=== PATIENT | male | born 1955 | race Caucasian/White ===

== ENCOUNTER 2017-11-14 10:43 | Inpatient (IN) | payer OTHER ==
[~2017-11-14] VITALS: Ht 167.6 cm; Wt 75.7 kg
[2017-11-14] MEDS ORDERED: IBUPROFEN 600 MG TABLET PO PRN (12:30)
[2017-11-14] MEDS ORDERED: LORAZEPAM 2 MG/1 ML VIAL IM PRN (12:30)
[2017-11-14] MEDS ORDERED: MAG HYDROX/AL HYDROX/SIMETH 30 ML LIQUID UDC PO PRN (12:30)
[2017-11-14] MEDS ORDERED: MAGNESIUM HYDROXIDE 30 ML LIQUID UDC PO PRN (12:30)
[2017-11-14] MEDS ORDERED: diphenhydrAMINE 50 MG CAPSULE PO PRN (12:30)
[2017-11-14] MEDS ORDERED: ONDANSETRON 4 MG/2 ML VIAL IM PRN (12:30)
[2017-11-14] MEDS ORDERED: THIAMINE HCL 200 MG/2 ML VIAL IM ONE (12:30)
[2017-11-14] MEDS ORDERED: CLONIDINE HCL 0.1 MG TABLET PO PRN (12:30)
[2017-11-14] MEDS ORDERED: LOPERAMIDE HCL 2 MG CAPSULE PO PRN ×2 (12:30)
[2017-11-14] MEDS ORDERED: ONDANSETRON ODT 4 MG TAB.RAPDIS SL PRN (12:30)
[2017-11-14] MEDS ORDERED: DICYCLOMINE HCL 20 MG TABLET PO PRN (12:30)
[2017-11-14] MEDS ORDERED: MIRALAX 17 GM POWD.PACK PO PRN (12:30)
[2017-11-14] MEDS ORDERED: ACETAMINOPHEN 325 MG TABLET PO PRN (12:30)
[2017-11-14] MEDS ORDERED: LORAZEPAM 1 MG TABLET PO PRN (12:30)
--- NOTE | 2017-11-14 13:15 | NUR ---
Preadmission Note: Pt is 62M, seen in intake office accompanied by hazardous materials handler. Pt is AOx4 and able to answer assessment questions. Pt noted with increasing anxiety during assessment questions. Pt reports drinking 1-1.5 bottles of white wine. Vitals: BP:155/77, HR: 88, RR 18, T 97.8, Spo2 98%. Educated pt with unit policies and procedures. Pt verbalized understanding. Will continue admission on unit.
[2017-11-14 13:27] LABS: BASOPHILS % (AUTO) 0.4 % (0.0-2.0); EOSINOPHILS # (AUTO) 0.1 K/uL (0.0-0.7); EOSINOPHILS % (AUTO) 1.2 % (0.0-7.0); HEMATOCRIT 39.2 % (36.7-47.1); HEMOGLOBIN 13.8 g/dL (12.5-16.3); LYMPHOCYTES # (AUTO) 1.8 K/uL (20.0-40.0); LYMPHOCYTES % (AUTO) 24.9 % (20.5-51.5); MEAN CORPUSCULAR HEMOGLOBIN 34.1 uug (23.8-33.4); MEAN CORPUSCULAR HGB CONC 35 g/dL (32.5-36.3); MEAN CORPUSCULAR VOLUME 97.1 fL (73.0-96.2); MONOCYTES # (AUTO) 0.8 K/uL (2.0-10.0); MONOCYTES % (AUTO) 10.8 % (0.0-11.0); NEUTROPHILS # (AUTO) 4.7 K/uL (1.8-8.9); NEUTROPHILS % (AUTO) 62.7 % (38.5-71.5); PLATELET COUNT (AUTO) 189 K/uL (152-348); RED BLOOD CELL COUNT(AUTO) 4.04 MIL/uL (4.06-5.63); WHITE BLOOD COUNT (AUTO) 7.4 K/uL (3.6-10.2)
--- NOTE | 2017-11-14 13:30 | NUR ---
Admission note; Patient is a 62 year old male admitted to [facility] for ETOH withdrawal, he arrived on the unit at 1255. Patient was seen and evaluated by community theater actor nurse along with Primary nurse in intake office for pre-admission assessment. Patient is AOX4, presented with anxiety, restlessness, tremors to touch noted. Patient remained cooperative during inital assessment. Patient's admitting vital signs are as follows; BP 155/77, Hr 88, Respirations 18, Oral Temperature of 97.8 , Spo2 of 98% on room air, denies pain at this time. Patient is ambulatory, steady gait noted. Patient reported that he is allergic to Statins , Amlodipine and Trazodone. Patient reported that he started drinking ETOH when he was 17 years old. He reported that 8 years ago he started drinking on a daily basis. He reported drinking 1 to 1 and a half bottle (750ml) of white Wine daily, last consumed on 11/13/17 at night time. Patient has never been to any detox facility /treatment Center or IOP treatment before. Patient stated that he is open to transferring to a treatment Center after he finish treatment here at [facility]. Patient would like to transfer to [facility] [place] for continuation of sobriety. Patient also reported that he took one time dose of Ativan 2mg PO on 11/13/17 for anxiety, patient denies using Ativan on a daily basis, patient stated " I only took it one time and that's it, i was just really anxious yesterday". Patient also reported taking Ambien 10mg daily for sleep disorder, he has been taking said medication since 1995 for sleep aid. Patient experience tremors, anxiety, agitation and restlessness when he is not drinking. Patient denies history of seizures, denies history of delirium and denies withdrawal induced cardiac complications, patient also denies any history of overdose or blackouts. Patient's current CIWA score is 14 manifested by anxiety, agitations, restlessness, avoidant to eye contact, flushed face noted,intermittent sweats and tremors to touch. Patient states he decided to get sober today for many reasons. He has been thinking of getting help for a few months now. He works in a stressful environment and he has been using drinking ETOH as a coping mechanism for stress. Patient stated " I tend to do crazy things when i drink like impulsive buying. Also I recently had an argument with my , which caused a major conflict in our relationship. The argument also caused the small cut on my left foot. The glass of wine was thorwn on the floor and a glass accidentally hit my left foot and caused the small cut . At that very moment I realized that my drinking habit is starting to affect my personal life and affects the people that i love. My family also got involved and they suggested that i need to seek medical help for my Alcoholism". Patient appears motivated in achieving sobriety and open to treatment options. Past medical and psychiatric history discussed. Patient reported history of hypertension, diagnosed 20 years ago. He reported taking maintenance BP medications Lisinopril 20mg Po once daily, Lisinopril-Hctz 20-12.5 mg once daily and Cardura 2mg once daily. He also reported history of GERD with treatment of Omeprazole 20mg PO once. He reported history of depression, patient currently take Trintellix 20mg once daily for depression. He reported using Jublia 10% cream PRN and Noritate 1% cream PRN for keratosis and Rosacea. Patient reported history of suicidal ideation 7 years ago, no suicidal attempts made. Patient's PCP is and his Psychiatrist is Dr. Cristobal Butcher. Skin check done. Patient has a small cut on lateral side left foot covered with Hydrocellular foam dressing. Asked patient to take off dressing for further evaluation of site, patient refused to take dressing off. Educated patient regarding admission protocol for skin assessment, patient verbalized understanding. Patient requested for site to be evaluated tomorrow after he takes a shower in the morning. Patient stated " I already showered today and i do not want to waste the dressing, i only have 10 dressings with me, please look at the site tomorrow morning after i take a shower". Patient denies pain on site, dressing is intact and dry. Reported to charge nurse, will endorse to covering nurse. Educated patient regarding unit protocols and policies, patient verbalized understanding. Oriented patient to unit by CONTAINER REPAIRER. MD evaluated patient, will follow up for treatment orders. Patient is on fall and seizure precaution. All safety measures secured. Will continue to monitor patient.
[2017-11-14] MEDS ORDERED: EFIN4SOL TP ×2 (13:32→14:51)
[2017-11-14] MEDS ORDERED: METR60CR TP ×2 (13:32→14:51)
[2017-11-14 13:39] LABS: ETHANOL < 3 MG/DL (0-0)
[2017-11-14 13:41] LABS: ALANINE AMINOTRANSFERASE 84 U/L (16-63); ALKALINE PHOSPHATASE 92 U/L (50-136); AMYLASE 56 U/L (25-115); ASPARTATE AMINOTRANSFERASE 75 U/L (15-37); BILIRUBIN,TOTAL 0.7 mg/dL (0.2-1.0); CARBON DIOXIDE 28 mmol/L (21-32); CHLORIDE 99 mmol/L (98-107); CREATININE 1.2 mg/dL (0.6-1.3); GLUCOSE 105 mg/dL (74-106); LIPASE 223 U/L (73-393); TOTAL PROTEIN, SERUM 8.2 g/dL (6.4-8.2); UREA NITROGEN, BLOOD 25 mg/dL (7-18)
[2017-11-14 13:43] LABS: MAGNESIUM 1.1 mg/dL (1.8-2.4)
[2017-11-14 13:50] LABS: *AMPHETAMINE, URINE NEGATIVE (NEGATIVE); *BARBITURATE, URINE NEGATIVE (NEGATIVE); *CANNABINOID, URINE NEGATIVE (NEGATIVE); *COCCAINE, URINE NEGATIVE (NEGATIVE); *OPIATE, URINE NEGATIVE (NEGATIVE); *PHENCYCLIDINE SCREEN,URINE NEGATIVE (NEGATIVE)
[2017-11-14] MEDS ORDERED: 5 DAY TAPER VALIUM-SERENITY PROTOCOL PO PRN (14:00)
[2017-11-14] MEDS ORDERED: MAGNESIUM OXIDE 400 MG TABLET PO ONE ×2 (14:00→21:00)
--- NOTE | 2017-11-14 14:00 | NUR ---
Valium and Magnesium Oxide Medication; Patient's magnesium is low 1.1, MD was notified. MD ordered Magnesium oxide 800mg PO once for magnesium supplement, order given to patient as ordered. MD also ordered 5 day Valium taper to start now to help reduce withdrawal symptoms. Patient's current CIWA score is 14 manifested by anxiety, agitation, restless legs, intermittent sweats and tremors. Will continue to monitor patient.
[2017-11-14] MEDS: DIAZEPAM 10 MG TABLET PO SCH ×3 (14:12→20:24)
[2017-11-14] MEDS ORDERED: ZOLP10TA2 PO (14:51)
[2017-11-14] MEDS ORDERED: LISI1TAB11 PO (14:51)
[2017-11-14] MEDS ORDERED: OMEP20CA10 PO (14:51)
[2017-11-14] MEDS ORDERED: LISI-603 PO (14:51)
[2017-11-14] MEDS ORDERED: DOXA2TAB PO (14:51)
[2017-11-14] MEDS ORDERED: trintellix PO (14:52)
[2017-11-14] MEDS ORDERED: QUETIAPINE FUMARATE 25 MG TABLET PO PRN (15:00)
--- NOTE | 2017-11-14 15:00 | NUR ---
Psychiatrist Communication: Pt noted with sleep disorder and takes ambien for sleep. Psychiatrist made aware. New order for 50mg Seroquel HSPRN for insomnia.
--- NOTE | 2017-11-14 16:00 | NUR ---
CIWA Assessment; Patient's current CIWA score is 14 manifested by anxiety, agitation, restless legs, intermittent sweats and tremors. Patient was started on Valium taper to help reduce withdrawal symptoms. Will continue to monitor patient.
[2017-11-14 17:28] VITALS: BP 140/73
[2017-11-14] MEDS: LORAZEPAM 1 MG TABLET PO PRN ×2 (18:32→22:40)
--- NOTE | 2017-11-14 18:34 | NUR ---
PRN medication; PRN Ativan 1mg PO given for CIWA of 14, Patient's current CIWA score is 14 manifested by increased anxiety, agitation, restless legs, intermittent sweats and tremors. Will continue to monitor patient for effectiveness of medication.
--- NOTE | 2017-11-14 18:50 | NUR ---
End of shift note; Patient is AOx4, newly admitted patient for ETOH withdrawal presented with anxiety, agitation, restless legs, intermittent sweats and tremors. Patient was placed on 5 day Valium taper started at 1400 per MD order. Patient's last CIWA score is 14 at 1600. Patient received PRN Ativan 1mg at 1834 for CIWA of 14, to be re-assessed at 1934, will endorse to night nurse. All safety measures secured. Met all needs. Night nurse made aware of patient's request in regards to evaluation of left foot skin cut after he takes a shower tomorrow, picture to be taken tomorrow per patient's request.
--- NOTE | 2017-11-14 19:30 | NUR ---
START OF SHIFT Pt is a 62 y/o male admitted on 11/14/17 for ETOH withdrawal. Pt was also using Ambien for insomnia. Last CIWA 13 and PRN Ativan 1 mg administered at 1834 during day shift, Ativan 1 mg to be reassessed. Mg 1.1, replaced with 800 mg Mag-Ox during day shift and scheduled 800 mg due tonight. Upon assessment pt presents with anxiety, tremors, flushed skin, restlessness, hard time sitting still, diarrhea, and difficulty falling and staying asleep. Medications due. Safety measures in place. Call light within reach. Will continue to monitor.
--- NOTE | 2017-11-14 19:34 | NUR ---
PRN ATIVAN REASSESSMENT PRN Ativan 1 mg administered during day shift. CIWA 12. Pt presents with anxiety, tremors, flushed skin, restlessness, hard time sitting still, diarrhea, and difficulty falling and staying asleep. Safety measures in place. Call light within reach. Will continue to monitor.
[2017-11-14 20:00] VITALS: BP 148/78
--- NOTE | 2017-11-14 20:00 | NUR ---
CIWA 12 Pt presents with anxiety, tremors, flushed skin, restlessness, hard time sitting still, diarrhea, and difficulty falling and staying asleep. Pt pacing hallways.
--- NOTE | 2017-11-14 20:24 | NUR ---
PRN IMODIUM ADMINISTRATION Pt reports diarrhea/loose stools, he states likely from taking Magnesium supplement. Safety measures in place. Call light within reach. Will continue to monitor.
[2017-11-14] MEDS ORDERED: MIRTAZAPINE 15 MG TABLET PO SCH (21:00)
--- NOTE | 2017-11-14 21:24 | NUR ---
PRN IMODIUM REASSESSMENT Pt has not had an episode of diarrhea yet, will continue to monitor. Encouraged fluid intake.
--- NOTE | 2017-11-14 22:40 | NUR ---
PRN ATIVAN 1 MG ADMINISTRATION CIWA 13, pt presents with anxiety, restlessness, sweats, tremors, difficulty sitting still. Pts chief complaint is anxiety. Safety measures in place. Call light within reach. Will continue to monitor.
--- NOTE | 2017-11-14 23:40 | NUR ---
PRN ATIVAN 1 MG REASSESSMENT CIWA 10. Pt has mild improvement in tremors and sweats, has persistent anxiety and restlessness. Safety measures in place. Call light within reach. Will continue to monitor.
[2017-11-15] VITALS: BP 142/73
--- NOTE | 2017-11-15 | NUR ---
CIWA 10 Pt sitting in chair in room, appears anxious and restless. Tremors and flushed skin present. Pt reports "I really don't think I'm going to sleep tonight."
[2017-11-15 04:00] VITALS: BP 142/83
--- NOTE | 2017-11-15 04:00 | NUR ---
CIWA DEFERRED Pt laying in bed with eyes closed, CIWA deferred, to be assessed when pt is awake per orders. Respirations even and unlabored. Safety measures in place. Call light within reach. Will continue to monitor.
--- NOTE | 2017-11-15 07:10 | NUR ---
END OF SHIFT Pt is a 62 y/o male admitted on 11/14/17 for ETOH withdrawal. Pt is on a 5 day Valium taper that started on 11/14/17. Pt presented with anxiety, tremors, flushed skin, restlessness, hard time sitting still, diarrhea, difficulty falling and staying asleep and was fearful. Scheduled medications and PRN Ativan 1 mg administered, effective in S/S of withdrawal AEB CIWA 13 lowered to CIWA 10 during shift. Pt slept 10 hours. Intake 1500 ml, void x 3, stool x 0. Safety measures in place. Call light within reach. Pts needs have been met. Endorsed to day shift nurse.
--- NOTE | 2017-11-15 07:30 | NUR ---
Start of Shift Notes: Report received from day shift nurse. Per day shift nurse, last CIWA was 10. Upon start of shift, pt was in room sitting on chair. Pt stated Im just relaxing and want to start breakfast. During assessment, pt is AOx4. Respirations even and unlabored. Pt currently on Valium taper to manage withdrawal symptoms. Pt requesting to increase his Remeron dose to help him sleep better. Pt stated I just keep waking up. Bed in lowest position. Side rails up x2. Call light functioning and within reach. All needs attended and met. Will continue to monitor.
[2017-11-15 08:00] VITALS: BP 111/81
--- NOTE | 2017-11-15 08:00 | NUR ---
CIWA 14 Pt noted with moderate tremors, moderate anxiety and moderate agitation. CIWA 14
--- NOTE | 2017-11-15 08:01 | NUR ---
Wound Documentation: Pt has healing wound on left foot. Skin is pink. Scant drainage noted. Pt has his own absorbent dressing to cover wound. Pictures taken and placed on chart.
[2017-11-15] MEDS ORDERED: TRINTELLIX 20 MG PO SCH (09:00)
[2017-11-15] MEDS ORDERED: Medication Not On Formulary EA (Lisinopril/HCTZ (Lisinopril-Hctz 20-12.5 Mg Tab) 1 TAB) PO SCH (09:00)
[2017-11-15] MEDS ORDERED: TUBERCULIN,PURIF.PROT.DERIV. 5 TU/0.1 ML TEST ID ONE (09:00)
[2017-11-15] MEDS ORDERED: HYDROCHLOROTHIAZIDE 12.5 MG CAPSULE PO SCH ×2 (09:00→09:23)
[2017-11-15] MEDS ORDERED: Medication Not On Formulary EA (Omeprazole 1 CAP) PO SCH (09:00)
[2017-11-15] MEDS ORDERED: LISINOPRIL 20 MG TABLET PO SCH ×3 (09:00→09:22)
[2017-11-15] MEDS: DOXAZOSIN 2 MG TABLET PO SCH (09:49)
[2017-11-15] MEDS: FOLIC ACID 1 MG TABLET PO SCH (09:49)
[2017-11-15] MEDS: THIAMINE HCL 100 MG TABLET PO SCH (09:50)
[2017-11-15] MEDS: MULTIVITAMINS,THERAPEUTIC TABLET PO SCH (09:50)
[2017-11-15] MEDS: DIAZEPAM 10 MG TABLET PO SCH ×3 (09:50→21:54)
[2017-11-15] MEDS: LISINOPRIL 20 MG TABLET PO SCH (09:51)
[2017-11-15] MEDS: HYDROCHLOROTHIAZIDE 12.5 MG CAPSULE PO SCH (09:52)
[2017-11-15] MEDS: PANTOPRAZOLE SODIUM 40 MG TABLET.DR PO SCH (09:55)
[2017-11-15 12:00] VITALS: BP 139/81
--- NOTE | 2017-11-15 12:00 | NUR ---
CIWA 12 Pt noted with slight tremors, slight sweating, anxiety and agitation. CIWA 12
[2017-11-15] MEDS: NORITATE TOP PRN ×2 (12:01→21:56)
--- NOTE | 2017-11-15 12:01 | NUR ---
Noritate PRN: Pt requested for his home medication cream for Rosacea. Pt used Noritate PRN cream as ordered. Will continue to monitor.
--- NOTE | 2017-11-15 12:41 | NUR ---
Therapist prompted client to attend group therapy sessions.
[2017-11-15] MEDS ORDERED: JUBLIA TOP PRN (12:45)
[2017-11-15] MEDS ORDERED: MAGNESIUM OXIDE 400 MG TABLET PO ONE ×2 (12:45→15:00)
--- NOTE | 2017-11-15 13:18 | NUR ---
Magnesium ONE TIME and Imodium PRN: Pt noted with Magnesium 1.4. ONE TIME 800mg Mag-Ox given. Pt also noted with diarrhea. ONE TIME 2mg Imodium given as ordered.
--- NOTE | 2017-11-15 14:00 | NUR ---
Imodium Reassessment: Pt reported no further episodes of diarrhea. Imodium effective.
[2017-11-15 16:00] VITALS: BP 129/80
--- NOTE | 2017-11-15 16:00 | NUR ---
CIWA 12 Pt noted with slight tremors, slight sweating, anxiety/agitation. CIWA 12
[2017-11-15] MEDS ORDERED: LORAZEPAM 1 MG TABLET PO PRN ×2 (16:30)
--- NOTE | 2017-11-15 19:11 | NUR ---
End of Shift Note: Report given to shift superintendent caustic cresylate nurse. Pt was active in current plan of care. Pt was able to talk to psychiatrist and increase his Remeron for the night. Pt requested his cream for Rosacea PRN. Pt noted with Mag 1.4, Magnesium replaced with 800mg Mag-Ox. Pt continues on Valium taper to manage withdrawal symptoms. Last CIWA was 12 at 1600. Bed in lowest position. Side rails up x2. Call light functioning and within reach. All needs attended and met.
--- NOTE | 2017-11-15 19:30 | NUR ---
START OF SHIFT Pt is a 62 y/o female admitted on 11/14/17 for ETOH withdrawal. Pt is on a 5 day Valium taper and got PRN Ativan extended. Last CIWA 12 and PRN Imodium and noritate cream administered during day shift. Mg 1.4, replaced with Mag-Ox 800 mg. Remeron dose increased. Upon assessment pt presents with anxiety, restlessness, tremors, agitation, difficulty falling and staying asleep, sweats, and is withdrawn. Medications due. Safety measures in place. Call light within reach. Will continue to monitor.
[2017-11-15 20:00] VITALS: BP 129/69
--- NOTE | 2017-11-15 20:00 | NUR ---
CIWA 16 Pt presents with anxiety, restlessness, tremors, agitation, difficulty falling and staying asleep, sweats, and is withdrawn. Pt requesting medication for anxiety as soon as possible.
--- NOTE | 2017-11-15 20:43 | NUR ---
PRN ATIVAN 2 MG ADMINISTRATION CIWA 16. Pt presents with anxiety, restlessness, tremors, agitation, difficulty falling and staying asleep, sweats, and is withdrawn. Pt chief complaint is anxiety. Safety measures in place. Call light within reach. Will continue to monitor.
--- NOTE | 2017-11-15 21:43 | NUR ---
PRN ATIVAN 2 MG REASSESSMENT CIWA 12. Pt has mild improvement in anxiety, tremors and sweats. Pt has persistent restlessness. Safety measures in place. Call light within reach. Will continue to monitor.
[2017-11-15] MEDS: MIRTAZAPINE 15 MG TABLET PO SCH (21:53)
--- NOTE | 2017-11-16 | NUR ---
CIWA DEFERRED AND VITALS REFUSED Pt laying in bed with eyes closed, CIWA deferred, to be assessed when pt is awake per orders. Vitals refused. Respirations even and unlabored. Safety measures in place. Call light within reach. Will continue to monitor.
--- NOTE | 2017-11-16 07:04 | NUR ---
END OF SHIFT Pt is a 62 y/o female admitted on 11/14/17 for ETOH withdrawal. Pt is on a 5 day Valium taper and got PRN Ativan extended. Pt presented with anxiety, restlessness, tremors, agitation, difficulty falling and staying asleep, sweats, and was withdrawn. Scheduled medications and PRN Ativan 2 mg administered, effective in S/S of withdrawal AEB CIWA 16 lowered to CIWA 12 during shift. Pt slept 8 hours. Intake 1000 ml, void x 1, stool x 0. Safety measures in place. Call light within reach. Pts needs have been met. Endorsed to day shift nurse.
--- NOTE | 2017-11-16 07:40 | NUR ---
START OF SHIFT Endorse rcvd from ongoing nurse, client is in bed, he is a/o x 4, client presents with flushed face,agitation, anxiety, chills, clammy skin, depression, difficulty concentrating, difficulty thinking clearly, and fine tremors. Client reports nausea, abdominal cramps, insomnia, restless legs, sweating, headache, and a sense of panic. Client denies any diarrhea or vomiting. PRN Ativan 2mg for anxiety. Last CIWA 12 @ 2143. Client slept 8hrs. Encourage client to attend group therapy to learn skills to maintain sober. Encourage client to increase PO fluid as tolerated to facilitate detox. Seizure precautions rendered. Bed in lowest/locked position. Call light within reach,.
[2017-11-16 08:00] VITALS: BP 125/75
[2017-11-16] MEDS: THIAMINE HCL 100 MG TABLET PO SCH (09:41)
[2017-11-16] MEDS: DIAZEPAM 5 MG TABLET PO SCH ×4 (09:41→21:24)
[2017-11-16] MEDS: MULTIVITAMINS,THERAPEUTIC TABLET PO SCH (09:41)
[2017-11-16] MEDS: DOXAZOSIN 2 MG TABLET PO SCH (09:41)
[2017-11-16] MEDS: HYDROCHLOROTHIAZIDE 12.5 MG CAPSULE PO SCH (09:41)
[2017-11-16] MEDS: PANTOPRAZOLE SODIUM 40 MG TABLET.DR PO SCH (09:41)
[2017-11-16] MEDS: LISINOPRIL 20 MG TABLET PO SCH (09:41)
--- NOTE | 2017-11-16 09:41 | NUR ---
CIWA 16 Client presents with anxious mood, flat affect, flushed face, nausea, abdominal cramping, tremors, insomnia, restless legs, sweating, headache, panic feeling, agitation, anhedonia, clammy skin, depression, difficulty concentrating, and difficulty thinking clearly. Schedule Valium 5mg PO administered. Encourage client to attend group therapy and to increase PO fluid intake as tolerated. Call light within reach.
[2017-11-16] MEDS: FOLIC ACID 1 MG TABLET PO SCH (09:47)
[2017-11-16] MEDS: ERYTHROMYCIN 0.5% OPHT OINT 3.5 GM TUBE LEFTEYE SCH ×4 (10:10→21:23)
--- NOTE | 2017-11-16 10:10 | NUR ---
Therapist prompted client to attend twice daily group therapy sessions.
[2017-11-16 10:20] LABS: BILIRUBIN,TOTAL 0.5 mg/dL (0.2-1.0); CREATININE 1.4 mg/dL (0.6-1.3); MAGNESIUM 1.3 mg/dL (1.8-2.4); POTASSIUM 4.3 mmol/L (3.5-5.1); TOTAL PROTEIN, SERUM 7.4 g/dL (6.4-8.2)
[2017-11-16 12:38] VITALS: BP 136/77
--- NOTE | 2017-11-16 12:54 | NUR ---
CIWA 15 Client is pacing in his room, he presents with anxiety, restlessness, flushed face, sweats, and tremors. Client reports feeling agitated, anxious and tired due to not sleeping well. Schedule Valium 5mg Po administered. Encourage to increase PO fluid intake as tolerated to facilitate detox.
[2017-11-16] MEDS ORDERED: MAGNESIUM OXIDE 400 MG TABLET PO ONE (15:30)
[2017-11-16 16:40] VITALS: BP 137/78
--- NOTE | 2017-11-16 16:45 | NUR ---
CIWA 14 Client continues to present with anxiety, agitation, restlessness, flushed face, sweats, and tremors. Client reports feeling nauseous, stomach cramps, decrease appetite, and fatigue. Schedule Valium 5mg PO administered. Encourage to increase PO fluid intake as tolerated to facilitate detox. Call light within reach.
--- NOTE | 2017-11-16 19:07 | NUR ---
END OF SHIFT Endorse client to incoming nurse, client is in group therapy, a/o x 4. Client presents with anxious mood, flat affect, flushed face, nausea, abdominal cramping, tremors, insomnia, restless legs, sweating, headache, panic feeling, agitation, anhedonia, clammy skin, depression, difficulty concentrating, and difficulty thinking clearly. Mag 1.3, Mag Ox 800mg PO administered as supplement. Last CIWA 9 @ [address]. Dr[address] Hurley modified 5 day Valium taper. Adequate PO fluid intake 2822mL, void x 3. Consumes 75-100% of meals. Call light within reach. Addendum: 11/16/17 at 1908 by ANTONIO RAE RN Last CIWA 14 @ 1700.
[2017-11-16 20:00] VITALS: BP 138/82
--- NOTE | 2017-11-16 20:00 | NUR ---
Start of Shift Patient noted to have a worried expression on his face, verbalized increasing anxiety and with restlessness, flushed face, sweating on the forehead and tremors. As per conversation with the patient, he expressed resolve to finish with the detox and "get over the hump" with regard to withdrawal symptoms. Patient noted to be melancholic and with depressed mood. With cut on the left foot healing up. Patient continues with Valium taper. Fall, universal, seizure and safety prec in place. Call light within reach. Re-educated patient with the plan of care and medication side effects. Latest CIWA=13. Will continue to monitor.
[2017-11-16] MEDS: MIRTAZAPINE 15 MG TABLET PO SCH (21:24)
[2017-11-17] VITALS: BP 132/79
[2017-11-17 04:00] VITALS: BP 133/84
[2017-11-17 06:07] LABS: HEPATITIS B SURFACE AG Negative (Negative)
--- NOTE | 2017-11-17 07:16 | NUR ---
End of Shift Patient continues to have intermittent anxiety, restlessness, flushed face, sweating and tremors. Patient easily gets agitated and noted to be melancholic and with depressed mood. Patient verbalized easily getting tired and wanted to just sleep for more hours today. Fall, universal, seizure and safety prec in place. Call light within reach. Latest CIWA=12, slept for 8 hours. Endorsed to AM shift nurse for continuity of care.
--- NOTE | 2017-11-17 07:18 | NUR ---
Start Of Shift Report received from night shift supervisor nurse. Pt is a 62 y/o male admitted to [facility] detox for ETOH withdrawal. Pt is on a 5 day Valium taper tolerating well. Per night shift supervisor his last CIWA 12 Upon start of shift pt noted pacing around his room, breathing even and unlabored. When greeted pt stated "Im feeling anxious and tired at the same time how is that possible, can I have my medication now please". Pt's room appears unorganized and messy, clothes laying around everywhere around the room. Pt appears anxious, flushed, tremors and fatigued. During assessment, pt is AOx4. Lung sounds clear bilaterally. Radial pulse is regular and non-bounding. Abdomen soft and non-tender. Pt's skin is warm and intact. Pt denies any pain at the moment. Encouraged pt to drink plenty of fluids to keep hydrated and help the detox process. Pt did not received any PRN medications last night, pt slept a total of 4 hours last night. Bed in lowest position. Side rails up x2. Call light functioning and within reach. All needs attended and met. Will continue to monitor.
[2017-11-17 08:00] VITALS: BP 125/75
--- NOTE | 2017-11-17 08:00 | NUR ---
CIWA 14 Pt has diaphoresis, anxiety restless legs, yawning agitation, Emotional volatility and restlessness. Pt complains of chills runny nose and fatigue. Pt encouraged to drink more fluids to help with detox process. Will continue to monitor, support and encourage according to plan of care.
[2017-11-17] MEDS: DOXAZOSIN 2 MG TABLET PO SCH (09:27)
[2017-11-17] MEDS: LISINOPRIL 20 MG TABLET PO SCH (09:27)
[2017-11-17] MEDS: PANTOPRAZOLE SODIUM 40 MG TABLET.DR PO SCH (09:27)
[2017-11-17] MEDS: THIAMINE HCL 100 MG TABLET PO SCH (09:28)
[2017-11-17] MEDS: FOLIC ACID 1 MG TABLET PO SCH (09:28)
[2017-11-17] MEDS: MULTIVITAMINS,THERAPEUTIC TABLET PO SCH (09:28)
[2017-11-17] MEDS: DIAZEPAM 5 MG TABLET PO SCH ×3 (09:28→21:12)
[2017-11-17] MEDS: HYDROCHLOROTHIAZIDE 12.5 MG CAPSULE PO SCH (09:28)
[2017-11-17] MEDS: ERYTHROMYCIN 0.5% OPHT OINT 3.5 GM TUBE LEFTEYE SCH ×4 (09:28→21:20)
[2017-11-17 12:00] VITALS: BP 126/83
--- NOTE | 2017-11-17 12:00 | NUR ---
CIWA 13 Pt has anxiety restless legs, agitation, Emotional volatility and restlessness. Pt complains of chills runny nose and fatigue. Pt encouraged to drink more fluids to help with detox process. Will continue to monitor, support and encourage according to plan of care.
[2017-11-17] MEDS ORDERED: UBID100C13 PO (13:20)
[2017-11-17] MEDS ORDERED: [UNRECOGNIZED DRUG - CODE] TP (13:20)
[2017-11-17] MEDS ORDERED: OMEG-15 PO (13:20)
[2017-11-17] MEDS ORDERED: ACET600C PO (13:20)
[2017-11-17] MEDS ORDERED: FLUO40CR3 TP (13:20)
[2017-11-17] MEDS ORDERED: MAGNESIUM OXIDE 400 MG TABLET PO ONE (14:00)
[2017-11-17] MEDS ORDERED: VORT20TA PO (14:23)
[2017-11-17 16:00] VITALS: BP 127/80
--- NOTE | 2017-11-17 16:00 | NUR ---
CIWA 15 Pt has diaphoresis, anxiety restless legs, yawning, agitation, Emotional volatility and restlessness. Pt complains of chills runny nose and fatigue. Pt encouraged to drink more fluids to help with detox process. Will continue to monitor, support and encourage according to plan of care.
--- NOTE | 2017-11-17 18:56 | NUR ---
End of Shift Report given to night order selector nurse, Plan of care followed, Vital signs monitored closely Q4H. Withdrawals symptoms were closely monitored, medications given as schedule. Initial CIWA 14. Pt encouraged adequate PO fluid intake as tolerated. Pt presented with sweats flushed face emotional volatility restless legs, anxiety and tremors during the day. Pt received all of his scheduled taper medications. Pt did not receive any PRN medications during the day. pt did receive magnesium supplement one time order per MD . Last CIWA was a 15. Pt reported that Valium has been working well at controlling his withdrawal symptoms. Pt ate all of his meals. Pt attended all the groups and activities to learn new coping skills to prevent relapse. Pt denies any SI/HI. All safety measures in place, bed in lowest locked position, call light within reach. All needs met and attended.
--- NOTE | 2017-11-17 19:15 | NUR ---
START OF SHIFT Patient is a 62-year-old male admitted on 11/14/17 for ETOH withdrawal. Patient is currently on a modified 5-day Valium taper, tolerating well; today is day 4 of taper. Patient's last CIWA was 15, per endorsement. Patient did not receive any PRN medications today. Upon assessment, patient is alert and oriented x4. Patient appears agitated and anxious, and per reports, patient has been noted to be temperamental and irritable. Patient complains of difficulty sleeping, stating, "even if someone opens the door while I'm sleeping, the light wakes me up." Patient is on fall and seizure precautions, patient denies seizure history. Safety measures in place, side rails up x2, bed locked in low position, call light within reach. Medications scheduled, will continue to monitor.
[2017-11-17 20:00] VITALS: BP 144/78
--- NOTE | 2017-11-17 20:00 | NUR ---
CIWA 13 Patient complains of anxiety and is visibly flushed and diaphoretic. Patient has a current CIWA of 13. SN to administer scheduled meds and any PRNs as needed.
[2017-11-17] MEDS: MIRTAZAPINE 15 MG TABLET PO SCH (22:17)
--- NOTE | 2017-11-18 | NUR ---
VITALS REFUSED, CIWA DEFERRED Patient refused midnight vitals; respirations even and unlabored, 14/min. CIWA deferred at this time due to patient sleeping; to be assessed and scored while patient is awake. Safety measures in place, side rails up x2, bed locked in low position, call light within reach. Will continue to monitor.
--- NOTE | 2017-11-18 04:00 | NUR ---
CIWA DEFERRED, VITALS REFUSED Patient refused 0400 vitals, stating that he did not want to be disturbed at all. CIWA deferred at this time due to patient sleeping, respirations even and unlabored. Safety measures in place, side rails up x2, bed locked in low position, call light within reach. Will continue to monitor.
--- NOTE | 2017-11-18 07:25 | NUR ---
END OF SHIFT Patient is a 62-year-old male admitted on 11/14/17 for ETOH withdrawal. Patient is currently on a modified 5-day Valium taper, tolerating well; today will be the last day of the taper. Patient's last CIWA was 13. Patient did not receive any PRN medications this shift. Patient slept for 7 hours, total intake of 600mL, void x1, stool x0. Patient is on fall and seizure precautions, patient denies seizure history. Safety measures in place, side rails up x2, bed locked in low position, call light within reach. Will endorse to day shift.
--- NOTE | 2017-11-18 07:30 | NUR ---
START OF SHIFT Endorse rcvd from ongoing nurse, client in the room, he is a/o x 4, client presents with depressed mood, flat affect, flushed face skin, clammy skin, and difficulty concentrating. Client reports nausea, stomach cramps, anxiety, agitation, and fatigue. Client had an uneventful night, he slept [address] Se[address] precautions in place. Encourage client to attend group therapy to learn skills to maintain sober. Call light within reach.
[2017-11-18] MEDS: PANTOPRAZOLE SODIUM 40 MG TABLET.DR PO SCH (07:34)
[2017-11-18 08:06] LABS: BILIRUBIN,DIRECT 0.1 mg/dL (0.0-0.2); BILIRUBIN,TOTAL 0.5 mg/dL (0.2-1.0); TOTAL PROTEIN, SERUM 7.5 g/dL (6.4-8.2)
[2017-11-18 08:08] LABS: MAGNESIUM 1.2 mg/dL (1.8-2.4)
[2017-11-18 08:20] VITALS: BP_SYST 130; BP_SYST 135; BP_DIAS 79; BP_DIAS 89
[2017-11-18] MEDS: ERYTHROMYCIN 0.5% OPHT OINT 3.5 GM TUBE LEFTEYE SCH ×4 (08:59→21:29)
[2017-11-18] MEDS: BRINTELLIX 20 MG PO SCH (08:59)
[2017-11-18] MEDS: FOLIC ACID 1 MG TABLET PO SCH (09:00)
[2017-11-18] MEDS: MAGNESIUM OXIDE 250 MG TABLET PO SCH (09:00)
[2017-11-18] MEDS: DOXAZOSIN 2 MG TABLET PO SCH (09:00)
[2017-11-18] MEDS: THIAMINE HCL 100 MG TABLET PO SCH (09:00)
[2017-11-18] MEDS ORDERED: DIAZEPAM 5 MG TABLET PO SCH ×2 (09:00)
[2017-11-18] MEDS: HYDROCHLOROTHIAZIDE 12.5 MG CAPSULE PO SCH (09:00)
[2017-11-18] MEDS: LISINOPRIL 20 MG TABLET PO SCH (09:01)
[2017-11-18] MEDS: MULTIVITAMINS,THERAPEUTIC TABLET PO SCH (09:01)
--- NOTE | 2017-11-18 09:01 | NUR ---
CIWA 14 & PRN Motrin 600mg PO for lower back pain 09/21 Client continues to present with anxiety, irritability, agitation, restlessness, tremors, flushed face, sweats, and headache. Valium 5mg PO administered. Encourage client to increase PO fluid to facilitate detox. Call light within reach.
--- NOTE | 2017-11-18 09:02 | NUR ---
Nursing note Client put motrin and Valium tab in mouth, turn araund to grab a different botle of water that the nurse was offering, he put his R hand over his mouth, then he swallowed the pill, nurse asks him to either swallow the valium or if he prefers not to take it, he needs to give back to nurse, he turn around and said, "What are you talking about?" Nurse asked him to open his R hand which he had closed in a fist, he opened and the Valium tab eas in his hand, he then swallowed the tab. Client got upset at first, but then he apologized for trying to divert the tab. Encourage client to verbalized his feelings. CN notified.
--- NOTE | 2017-11-18 10:01 | NUR ---
Reassess PRN Motrin 600mg, reports relief from lower back pain 3/10, but tolerable.
[2017-11-18 12:00] VITALS: BP 111/67
--- NOTE | 2017-11-18 12:05 | NUR ---
CIWA 10 Client continue to present with anxiety, flat affect. He repots feeling agitated, anxious, a sense of panic, difficulty concentrating, and fatigue. Client decline PRN medications for management of anxiety. CN notified. Call light within reach.
[2017-11-18] MEDS ORDERED: MAGNESIUM OXIDE 400 MG TABLET PO ONE (14:45)
--- NOTE | 2017-11-18 15:05 | NUR ---
Mag-Ox 400mg administered for as supplement for Mag 1.2
[2017-11-18 16:55] VITALS: BP 133/74
--- NOTE | 2017-11-18 17:00 | NUR ---
CIWA 8 Client continue to present with anxiety, flat affect. He repots feeling nauseous, anxious, restless, and fatigue. Client decline PRN medications for management of anxiety. MD notified. Call light within reach.
--- NOTE | 2017-11-18 19:00 | NUR ---
END OF SHIFT Endorse client to incoming nurse, client is in group therapy, a/o x 4. Client continues to present with anxiety, nausea, difficulty concentrating, and fatigue. Last CIWA 8 @ 1700. Client completed modified 5 day Valium taper, last dose administered this am. Client is schedule for DC to [facility] tomorrow am. Adequate PO fluid intake 3500mL, void x 4, stool x 3. Consumes 75-100% of meals. Call light within reach.
--- NOTE | 2017-11-18 19:30 | NUR ---
Start of shift Patient is 62 year old male, admitted for alcohol withdraw. Per endorsement patient completed 5 day Valium taper, and is set for discharge for tomorrow morning 11/19/2017. Patients last CIWA was 8. Patient received PRN Motrin with medication noted to be effective. He also continues for erythromycin eye ointment for left eye infection. Upon rounds patient noted in his room AOx4, breathing even and unlabored. No reported signs and symptoms of withdraw at this moment. Reviewed 2100 medications with patient, patient verbalized understanding. Fall precautions in place, bed placed in lowest position, side rails up x2, call light within reach. Will continue to monitor.
[2017-11-18 20:00] VITALS: BP 133/67
[2017-11-18] MEDS ORDERED: MIRT15TA7 PO (20:40)
[2017-11-18] MEDS ORDERED: MAGN250T37 PO (20:40)
[2017-11-18] MEDS ORDERED: ERYT3.5O24 LEFTEYE (20:40)
[2017-11-18] MEDS: MIRTAZAPINE 15 MG TABLET PO SCH (21:29)
--- NOTE | 2017-11-19 | NUR ---
Vitals refusal Patient was noted to be resting in bed with eyes closed, breathing even and unlabored. Patient refused vitals and was unable to complete CIWA assessment, will continue to monitor.
--- NOTE | 2017-11-19 07:20 | NUR ---
End of shift Patient is 62 year old male, admitted for alcohol withdraws. Patient completed 5 day Valium taper, and is set for discharge for today. Patients last CIWA was 9. Patient did not receive any PRN medications during this shift. Patient total intake was 1480 ml. Patient noted in his room AOx4, breathing even and unlabored. No reported signs and symptoms of withdraw at this moment. Patient slept for 10 hours. Fall precautions in place, bed placed in lowest position, side rails up x2, call light within reach. Will endorse to day shift to continue to monitor.
[2017-11-19] MEDS: PANTOPRAZOLE SODIUM 40 MG TABLET.DR PO SCH (07:27)
[2017-11-19 08:00] VITALS: BP 101/60
--- NOTE | 2017-11-19 08:00 | NUR ---
START OF SHIFT Pt is a 62 yr old male, AA&Ox4. pt was admitted on 11/14/17 for ETOH/Benzo withdrawal and was on 5 day Valium taper as ordered. Received report from retail shift leader nurse. No PRN's were given during the night. Last CIWA score was 9. Pt slept for 10 hrs. Pt is currently observed with anxiety m/b difficulty staying still. Skin is warm and moist to touch. Pt is to be discharged today to [facility]. Pt states he is ready to continue with rehabilitation and to maintain a sober lifestyle. CIWA score this morning is 6. Safety precautions observed. Call light is within reach. Will continue to monitor.
[2017-11-19] MEDS: HYDROCHLOROTHIAZIDE 12.5 MG CAPSULE PO SCH (08:39)
[2017-11-19] MEDS: THIAMINE HCL 100 MG TABLET PO SCH (08:39)
[2017-11-19] MEDS: LISINOPRIL 20 MG TABLET PO SCH (08:40)
[2017-11-19] MEDS: FOLIC ACID 1 MG TABLET PO SCH (08:40)
[2017-11-19] MEDS: BRINTELLIX 20 MG PO SCH (08:40)
[2017-11-19] MEDS: MULTIVITAMINS,THERAPEUTIC TABLET PO SCH (08:40)
[2017-11-19 08:41] VITALS: BP 135/73
[2017-11-19] MEDS: ERYTHROMYCIN 0.5% OPHT OINT 3.5 GM TUBE LEFTEYE SCH (08:41)
[2017-11-19] MEDS: DOXAZOSIN 2 MG TABLET PO SCH (08:41)
[2017-11-19] MEDS: MAGNESIUM OXIDE 250 MG TABLET PO SCH (08:41)
[2017-11-19] MEDS: NORITATE TOP PRN (08:41)
--- NOTE | 2017-11-19 09:50 | NUR ---
DISCHARGED NOTE Pt is a 62 yr old male, AA&Ox4. pt was admitted on 11/14/17 for ETOH/Benzo withdrawal and was on 5 day Valium taper as ordered. Pt was cooperative with medication regimen and plan of care. Pt was c/o feeling anxious of leaving but states he is able to cope with anxiety level. No SI/HI. Pt was educated on discharged summary and prescriptions. Pt was able to verbalize understanding. Pt was escorted off the unit at 0939 in stable condition and was discharged to [facility]. Pt left with all belongings, valuables and home medications.
== END 2017-11-19 09:39 | disposition other institution (70) | DRG 895 ==
LOC: SRC 11:38
PROVIDERS: ADMIT Internal Medicine; ATTEND Internal Medicine
PROC: HZ2ZZZZ Detoxification Services for Substance Abuse Treatment (ICD-10-PCS; principal; 2017-11-14)
PROC: HZ41ZZZ Group Counseling for Substance Abuse Treatment, Behavioral (ICD-10-PCS; principal; 2017-11-14)
PROC: HZ31ZZZ Individual Counseling for Substance Abuse Treatment, Behavioral (ICD-10-PCS; 2017-11-16)
DX: F10.230 Alcohol dependence with withdrawal, uncomplicated (principal); F33.1 Major depressive disorder, recurrent, moderate; Y90.9 Presence of alcohol in blood, level not specified; E83.42 Hypomagnesemia; F13.10 Sedative, hypnotic or anxiolytic abuse, uncomplicated; E78.5 Hyperlipidemia, unspecified; L71.9 Rosacea, unspecified; L57.0 Actinic keratosis; Z82.49 Family history of ischemic heart disease and other diseases of the circulatory system; I10 Essential (primary) hypertension; K21.9 Gastro-esophageal reflux disease without esophagitis; H00.016 Hordeolum externum left eye, unspecified eyelid; G47.00 Insomnia, unspecified; F41.9 Anxiety disorder, unspecified; Z81.8 Family history of other mental and behavioral disorders; R74.0 Nonspecific elevation of levels of transaminase and lactic acid dehydrogenase [LDH]; E78.00 Pure hypercholesterolemia, unspecified
CPT/HCPCS: 36415; 70030-TC; 80307; 83690; 83735; 85025; 86592; 86705; 86803; 87340; 87806; A4663; G0480; J3411